=== PATIENT | male | born 1980 | race Caucasian/White ===

== ENCOUNTER 2016-09-27 17:50 | Emergency (ER) | payer SELFPAY ==
--- NOTE | 2016-09-27 19:54 | ED NURSING NOTES ---
Clinical Report - Nurses [facility] [address] [place] [address] 09/27/2016 17:51 [id number] TRI[facility] Triage time 18:11. Acuity: LEVEL 4. Chief Complaint: FALL. 18:11 09/27/16. 18:11 09/27/16. Alert. No acute distress. SEPSIS SCREEN: Sepsis Screen. Negative (no infection suspected/documented). MELIDA COMA SCORE: Melida Coma Scale: 15- eyes open spontaneously (4); best verbal response- oriented x 4 (5); best motor response- obeys commands (6). --18:17 Kushal Huddleston R.N. 18:14 09/27/16. BP: 130/87. HR: 88. RR: 18. O2 saturation: 99% on room air. Temp: 97.9 F (oral). Pain level now: 07/20. --18:17 Kushal Huddleston R.N. Weight: 86.1 kg stated. Height/Length: 70 inches Per Patient. BMI: 27.2. --18:13 Kushal Huddleston R.N. Medications None. --18:14 Kushal Huddleston R.N. Medication/allergy information source: the patient. --18:17 Kushal Huddleston R.N. Allergies None. --18:14 Kushal Huddleston R.N. History Arrived by private vehicle. Historian: patient. Primary physician (NONE). 18:11 09/27/16. Location of injuries: right eye. This occurred today. Occurred at home. ( 1530 Pt slipped on mud striking his right eye brown on his barn). No loss of consciousness. No headache, neck pain or back pain. 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 PAST MEDICAL HX: Tetanus immunization status is not up-to-date. Immunizations not up to date. SOCIAL HX: Never smoker. Occasional alcohol use. History of occasional drug use. No infectious disease exposure. ABUSE ASSESSMENT: No report of abuse. FALL RISK ASSESSMENT: Fall risk assessment completed. No fall risk identified. NUTRITIONAL RISK ASSESSMENT: The nutritional risk assessment revealed no deficiencies. FUNCTIONAL ASSESSMENT: Functional assessment: no impairments noted. LEARNING NEEDS ASSESSMENT: The learning needs assessment revealed no barriers. --18:17 Kushal Huddleston R.N. PROBLEMS: no known problems. ADDITIONAL SURGERIES: no known surgeries. Assessment 18:09/27/16. --18:17 Kushal Huddleston R.N. Interventions 18:09/27/16. 18:09/27/16. ID and allergy band on patient. To treatment room. --18:17 Kushal Huddleston R.N. PHYSICAL ASSESSMENT 18:09/27/16. GENERAL / NEURO / PSYCH: Alert. Oriented X 4. Appears in no acute distress. HEENT: Forehead: deep laceration with controlled bleeding (Above right eye brown). RESPIRATORY: Respirations not labored. CVS: Capillary refill less than 2 seconds. SKIN: Skin is warm and dry. --18:15 Kushal Huddleston R.N. NURSING PROGRESS NOTES 18:09/27/16. Reassurance given. Two patient identifiers checked. Call light placed in reach. Side rails up x 2. Bed placed in lowest position. Brakes of bed on. --18:15 Kushal Huddleston R.N. 18:09/27/16. Patient ready for evaluation- chart flagged and notification provided. --18:15 Kushal Huddleston R.N. 18:34 09/27/2016 TDAP IM 0.5 mL given. (Lot#: [id number], expiration date: 04/17/2018, Claim Processing Specialist: sanofi pasteur). Given in the right deltoid. Allergies verified and confirmed 5 rights. Vaccine information statement provided to the patient. --18:34 Jose Contreras R.N. ( Report received from MELINA Garcia at 1900. Nurse practitioner currently suturing patient.). --19:37 Narayan Irving R.N. DISPOSITION / DISCHARGE The patient left prior to discharge education being provided. The patient was discharged home. He left the Emergency Department ambulatory. ( Patient left before receiving discharge information.). --20:05 Narayan Irving R.N. Departure time: 20:06. ( Patient left before RN could assess the patient's dressings and sutures as applied by the nurse practitioner.). --20:06 Narayan Irving R.N. Locked/Released at 09/27/2016 20:06 by Narayan Irving R.N.
--- NOTE | 2016-09-27 19:54 | ED NURSING NOTES ---
Clinical Report - Nurses [facility] [address] [place] [address] 09/27/2016 17:51 [id number] TRIAGE Triage time 18:11. Acuity: LEVEL 4. Chief Complaint: FALL. 18:11 09/27/16. 18:11 09/27/16. Alert. No acute distress. SEPSIS SCREEN: Sepsis Screen. Negative (no infection suspected/documented). MELIDA COMA SCORE: Melida Coma Scale: 15- eyes open spontaneously (4); best verbal response- oriented x 4 (5); best motor response- obeys commands (6). --18:17 Kushal Huddleston R.N. 18:14 09/27/16. BP: 130/87. HR: 88. RR: 18. O2 saturation: 99% on room air. Temp: 97.9 F (oral). Pain level now: 07/20. --18:17 Kushal Huddleston R.N. Weight: 86.1 kg stated. Height/Length: 70 inches Per Patient. BMI: 27.2. --18:13 Kushal Huddleston R.N. Medications None. --18:14 Kushal Huddleston R.N. Medication/allergy information source: the patient. --18:17 Kushal Huddleston R.N. Allergies None. --18:14 Kushal Huddleston R.N. History Arrived by private vehicle. Historian: patient. Primary physician (NONE). 18:11 09/27/16. Location of injuries: right eye. This occurred today. Occurred at home. ( 1530 Pt slipped on mud striking his right eye brown on his barn). No loss of consciousness. No headache, neck pain or back pain. 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 PAST MEDICAL HX: Tetanus immunization status is not up-to-date. Immunizations not up to date. SOCIAL HX: Never smoker. Occasional alcohol use. History of occasional drug use. No infectious disease exposure. ABUSE ASSESSMENT: No report of abuse. FALL RISK ASSESSMENT: Fall risk assessment completed. No fall risk identified. NUTRITIONAL RISK ASSESSMENT: The nutritional risk assessment revealed no deficiencies. FUNCTIONAL ASSESSMENT: Functional assessment: no impairments noted. LEARNING NEEDS ASSESSMENT: The learning needs assessment revealed no barriers. --18:17 Kushal Huddleston R.N. PROBLEMS: no known problems. ADDITIONAL SURGERIES: no known surgeries. Assessment 18:09/27/16. --18:17 Kushal Huddleston R.N. Interventions 18:09/27/16. 18:09/27/16. ID and allergy band on patient. To treatment room. --18:17 Kushal Huddleston R.N. PHYSICAL ASSESSMENT 18:09/27/16. GENERAL / NEURO / PSYCH: Alert. Oriented X 4. Appears in no acute distress. HEENT: Forehead: deep laceration with controlled bleeding (Above right eye brown). RESPIRATORY: Respirations not labored. CVS: Capillary refill less than 2 seconds. SKIN: Skin is warm and dry. --18:15 Kushal Huddleston R.N. NURSING PROGRESS NOTES 18:09/27/16. Reassurance given. Two patient identifiers checked. Call light placed in reach. Side rails up x 2. Bed placed in lowest position. Brakes of bed on. --18:15 Kushal Huddleston R.N. 18:09/27/16. Patient ready for evaluation- chart flagged and notification provided. --18:15 Kushal Huddleston R.N. 18:34 09/27/2016 TDAP IM 0.5 mL given. (Lot#: [id number], expiration date: 04/17/2018, Environmental Quality Analyst: sanofi pasteur). Given in the right deltoid. Allergies verified and confirmed 5 rights. Vaccine information statement provided to the patient. --18:34 Jose Contreras R.N. ( Report received from MELINA Garcia at 1900. Nurse practitioner currently suturing patient.). --19:37 Narayan Irving R.N. DISPOSITION / DISCHARGE The patient left prior to discharge education being provided. The patient was discharged home. He left the Emergency Department ambulatory. ( Patient left before receiving discharge information.). --20:05 Narayan Irving R.N. Departure time: 20:06. ( Patient left before RN could assess the patient's dressings and sutures as applied by the nurse practitioner.). --20:06 Narayan Irving R.N. Locked/Released at 09/27/2016 20:06 by Narayan Irving R.N.
--- NOTE | 2016-09-27 19:54 | ED ORDER SUMMARY ---
..... Patient: JOSESITO BORRERO OrderSheet [facility] VisitID: [id number] [address] [place] [address] 36y, M Registration Date/Time: 09/27/2016 ORDER SHEET Weight: 86.1 kg (stated) Allergies: None GENERAL ORDERS: Suture Set-up: (18:45 09/27/2016 HBivens A.R.N.P.) (19:19 DDavis R.N.) Dress Wounds (18:45 09/27/2016 HBivens A.R.N.P.) (Ack 19:19 DDavis R.N.) (19:56 DDavis R.N.) MEDICATION ORDERS: Tdap IM 0.5 mL (NOW, per protocol) (18:18 09/27/2016 JBoardley R.N. per protocol) (Ack 18:22 LWhalen R.N.) (18:34 LWhalen R.N.) IV FLUIDS: ORDER SHEET NOTES: [Electronically signed by Narayan Irving R.N. (20:09/27/2016)] [Electronically signed by Alva MondragonNRodgerPRodger (22:09/27/2016)] [Electronically locked/signed by Narayan Irving R.N. (20:09/27/2016)]
--- NOTE | 2016-09-27 19:54 | ED CLINICAL REPORT ---
Clinical Report - Physicians/Mid Levels [facility] [address] [place] [address] 09/27/2016 17:51 Patient: JOSESITO BORRERO Time Seen: 18:24; initial patient contact, initial documentation, patient care assumed. Arrived- By private vehicle. Historian- patient. HISTORY OF PRESENT ILLNESS Chief Complaint: FALL. Location of injuries- face. The injury occurred today. Fell while walking and landed on the ground; slipped (slipped in mud in barn and hit face on wall). Occurred at home. The patient denies pain. The patient sustained a moderate blow to the head. No neck pain, loss of consciousness or seizure. Not dazed. REVIEW OF SYSTEMS No dizziness, loss of vision, chest pain, difficulty breathing or headache. No vomiting. He sustained skin laceration but has no pain on weight bearing. All systems otherwise negative, except as recorded above. PAST HISTORY Negative. Tetanus immunization status is unknown. SOCIAL HISTORY Never smoker. Occasional alcohol use. History of occasional drug use: marijuana. No recent travel. Is a local resident. FAMILY HISTORY No significant family medical history. ADDITIONAL NOTES The nursing notes have been reviewed with agreement regarding the chief complaint, HPI, ROS, PMH and patient medications and allergies. PHYSICAL EXAM Vital Signs: 09/27/2016 18:14 BP: 130/87. HR: 88. RR: 18. O2 saturation: 99%. Temp: 97.9 F. Pain level now: 07/20. Have been reviewed as normal and appear to be correct. Appearance: Alert. Oriented X3. No acute distress. Head: Swelling of head present. Head non-tender. Eyes: Pupils equal, round and reactive to light. EOM intact. Right periorbital area: mild swelling, subcutaneous 3.0 cm horizontal laceration and medium sized ecchymosis of the lateral aspect and supraorbital area of the periorbital area. SEE LACERATION PROCEDURE NOTE #1. No erythema, puncture wound or foreign body. No tenderness, abrasion or deformity. No entrapment of extraocular muscles or gaze palsy. ENT: No dental injury. Pharynx normal. Neck: Painless ROM. Non-tender. CVS: Heart sounds normal. Pulses normal. Respiratory: Breath sounds normal. Chest nontender. Abdomen: No visible injury. Soft and nontender. Back: No tenderness. ROM normal. Skin: Skin intact. Skin warm and dry. Normal skin color. Normal skin turgor. Extremities: Normal inspection. Pelvis stable. Extremities atraumatic. No lower extremity edema. Neuro: Oriented X 3. No motor deficit. No sensory deficit. PROGRESS AND PROCEDURES Laceration Repair: Location: face (R eyebrow). Length: 3 cm. Complexity: simple (local anesthesia used and sutured). Wound depth/shape- subcutaneous and linear and involving fascia. Wound is clean. No contamination, foreign body or contused tissue present. No tissue loss. Distal neuro/vascular/tendon status normal. Tendon not examined. No tendon deficit or laceration or tendon injury. Local anesthesia provided using 1% lidocaine (4 mL). Prepped with Betadine. Wound explored, cleansed, irrigated and examined to the base in bloodless field with normal saline. Wound not debrided. No foreign material removed. Closure of skin: interrupted 6-0 nylon (14 sutures). Post-procedure: he is stable and there are no complications. Bleeding is controlled and neuro-vascular status is intact distal to the wound. Dressing applied. Following the application of antibiotic ointment. (per nurse or tech, see other notes). Tetanus immunization given. Estimated blood loss: 5 mL. Patient and family counseled in person regarding the patient's stable condition and diagnosis. 19:53. Differential Diagnosis: Other possible considerations: fall, head injury, fx, lacs, contusions, abrasions, sprains. Above considerations are based on history and physical exam. Differential diagnosis was discussed with patient. Disposition: Discharged home in good and improved condition (19:54). Condition: good and stable. CLINICAL IMPRESSION Single deep laceration to the right periorbital area.Treatment of laceration not delayed. No infection or foreign body present. Fall on same level by slipping. Single contusion with soft tissue hematoma to the right periorbital area.No skin abrasion. INSTRUCTIONS Apply ice for 20 minutes four times a day for two days until better. Don't apply ice directly to skin. Protect wound and keep wound area clean. Soak in warm soapy water twice daily. Apply bacitracin twice daily. Sutures should be removed in five days. Warnings: HEAD INJURY PRECAUTIONS: An observer must check on the patient frequently for the next 24 hours to confirm that the patient responds as expected, is not confused, has no new weakness or numbness, and has no other problems. GENERAL WARNINGS: Return or contact your physician immediately if your condition worsens or changes unexpectedly, if not improving as expected, or if other problems arise. bleeding increases, changes in vision, or any other concerns. Follow-up: Follow up with your doctor in five days even if well and for suture removal and wound check. Call for an appointment. Summary of care provided to patient. Understanding of the discharge instructions verbalized by patient. (Electronically signed by Alva Mondragon A.R.N.P. 09/27/2016 22:20)
--- NOTE | 2016-09-27 19:54 | ED ORDER SUMMARY ---
..... Patient: JOSESITO BORRERO OrderSheet [facility] VisitID: [id number] [address] [place] [address] 36y, M Registration Date/Time: 09/27/2016 ORDER SHEET Weight: 86.1 kg (stated) Allergies: None GENERAL ORDERS: Suture Set-up: (18:45 09/27/2016 HBivens A.R.N.P.) (19:19 DDavis R.N.) Dress Wounds (18:45 09/27/2016 HBivens A.R.N.P.) (Ack 19:19 DDavis R.N.) (19:56 DDavis R.N.) MEDICATION ORDERS: Tdap IM 0.5 mL (NOW, per protocol) (18:18 09/27/2016 JBoardley R.N. per protocol) (Ack 18:22 LWhalen R.N.) (18:34 LWhalen R.N.) IV FLUIDS: ORDER SHEET NOTES: [Electronically signed by Narayan Irving R.N. (20:09/27/2016)] [Electronically signed by Alva MondragonNRodgerPRodger (22:09/27/2016)] [Electronically locked/signed by Narayan Irving R.N. (20:09/27/2016)]
--- NOTE | 2016-09-27 22:20 | ED MED RECONCILIATION SUMMARY ---
Patient: APOORVACLIFTON WOODARDOL Sindhu Medication Reconciliation Report [facility] VisitID: [id number] [address] [place] [address] 36y, M Registration Date/Time: 09/27/2016 Weight: 86.1 kg Height/Length: 70 in. BMI: 27.2 ALLERGIES: None The patient's Home Medications are listed below: NONE. The source(s) of the original Home Medication information: patient The following Medications were given to the patient in the Emergency Department: TDAP [IM] IM 0.5 mL, administered: 09/27/2016 6:34:00 PM The following Medications were prescribed to the patient: None.
--- NOTE | 2016-09-27 22:20 | ED MAR SUMMARY ---
..... Medication Administration Record [facility] [address] [place] [address] Patient: JOSESITO BORRERO Visit ID: [id number] 36y, M Weight: 86.1 kg Height/Length: 70 in BMI: 27.2 ALLERGIES: None Given 18:34 09/27/2016 Jose Contreras R.N. Medication Administered: TDAP [IM], Dose: 0.5 mL IM. Medication Ordered: Tdap IM 0.5 mL (NOW, per protocol).
--- NOTE | 2016-09-27 22:20 | ED MAR SUMMARY ---
..... Medication Administration Record [facility] [address] [place] [address] Patient: JOSESITO BORRERO Visit ID: [id number] 36y, M Weight: 86.1 kg Height/Length: 70 in BMI: 27.2 ALLERGIES: None Given 18:34 09/27/2016 Jose Contreras R.N. Medication Administered: TDAP [IM], Dose: 0.5 mL IM. Medication Ordered: Tdap IM 0.5 mL (NOW, per protocol).
--- NOTE | 2016-09-27 22:20 | ED DISCHARGE INSTRUCTIONS ---
Patient: JOSESITO BORRERO General Instructions [facility] VisitID: [id number] [place] [address] 36y, M Registration Date/Time: 09/27/2016 Single deep laceration to the right periorbital area.Treatment of laceration not delayed. No infection or foreign body present. Fall on same level by slipping. Single contusion with soft tissue hematoma to the right periorbital area.No skin abrasion. INSTRUCTIONS Apply ice for 20 minutes four times a day for two days until better. Don't apply ice directly to skin. Protect wound and keep wound area clean. Soak in warm soapy water twice daily. Apply bacitracin twice daily. Sutures should be removed in five days. Warnings: HEAD INJURY PRECAUTIONS: An observer must check on the patient frequently for the next 24 hours to confirm that the patient responds as expected, is not confused, has no new weakness or numbness, and has no other problems. GENERAL WARNINGS: Return or contact your physician immediately if your condition worsens or changes unexpectedly, if not improving as expected, or if other problems arise. bleeding increases, changes in vision, or any other concerns. Follow-up: Follow up with your doctor in five days even if well and for suture removal and wound check. Call for an appointment. Summary of care provided to patient. Understanding of the discharge instructions verbalized by patient. ADDITIONAL INFORMATION Mechanical Fall You have had a fall today. It appears that the cause is mechanical. That means that you slipped, tripped or lost your balance. If your fall had been due to fainting or a seizure, further tests would be required. Home Care: Rest today and resume your normal activities when you are feeling back to normal. If you were injured during the fall, follow the advice from your doctor regarding care of your injury. You may use acetaminophen (Tylenol) or ibuprofen (Motrin, Advil) to control pain, unless another pain medicine was prescribed. [NOTE: If you have chronic liver or kidney disease or ever had a stomach ulcer or GI bleeding, talk with your doctor before using these medicines.] Fall Prevention: Was there anything that caused your fall that can be fixed, removed, or replaced? Make your home safe by keeping walkways clear of objects you may trip over. Use non-slip pads under rugs. Do not walk in poorly lit areas. Do not stand on chairs or wobbly ladders. Use caution when reaching overhead or looking upward. This position can cause a loss of balance. Be sure your shoes fit properly, have non-slip bottoms and are in good condition. Be cautious when going up and down curbs, and walking on uneven sidewalks. If your balance is poor, consider using a cane or walker. Stay as active as you can. Balance, flexibility, strength, and endurance all come from exercise. They all play a role in preventing falls. Follow Up with your doctor or as advised by our staff. Get Prompt Medical Attention if any of the following occur: Repeated mechanical falls, or unexplained falls Dizziness, fainting or seizure Severe headache Chest pain or shortness of breath Palpitations (very rapid or very slow or irregular heartbeat) Blood in vomit, stools (black or red color) Weakness of an arm or leg or one side of the face Difficulty with speech or vision Laceration, Face (Suture Or Tape) Alaceration is a cut through the skin. This will require stitches if it is deep. Minor cuts may be treated with surgical tape. Home care The following guidelines will help you care for your laceration at home: If a bandage was applied and it becomes wet or dirty, replace it. Otherwise, leave it in place for the first 24 hours, then change it once a day or as directed. If sutures were used, clean the wound daily: After removing the bandage, wash the area with soap and water. Use a wet cotton swab to loosen and remove any blood or crust that forms. After cleaning, keep the wound clean and dry. Talk with your doctor before applying any antibiotic ointment to the wound. Reapply a fresh bandage. You may remove the bandage to shower as usual after the first 24 hours, but do not soak the area in water (no swimming) until the sutures are removed. If surgical tape was used, keep the area clean and dry. If it becomes wet, blot it dry with a towel. The doctor may prescribe an antibiotic cream or ointment to prevent infection. Do not stop taking this medication until you have have finished the prescribed course or the doctor tells you to stop. The doctor may also prescribe medications for pain. Follow the doctor's instructions for taking these medications.If you have chronic liver or kidney disease or ever had a stomach ulcer or GI bleeding, talk with your doctor before using these medicines. Follow-up care Follow up with your health care provider. Most facial cuts heal in five days with no problem. However, even with proper treatment, a wound infection sometimes occurs. Therefore, check the wound daily for the warning signs listed below. Stitches should not be left in the face for more thanfivedays; otherwise, permanent stitch mitchell may form. If surgical tape closures were used, you may remove them yourself afterfivedays, if they have not fallen off by then. When to seek medical care Get prompt medical attention if any of these occur: Increasing pain in the wound Redness, swelling, or pus coming from the wound If sutures come apart or fall out before 5 days If the surgical tape closures fall off before 5 days, or the wound edges reopen Fever of 100.4F (38C) or higher, or as directed by your health care provider Bleeding not controlled by direct pressure Laceration: Will There Be A Scar? A laceration is a cut through one or more layers of the skin. The goal of emergency treatment is to clean the wound and close it to prevent infection, control bleeding and speed healing. Cuts heal because the body is able to repair the skin by "sealing" the edges together with collagen, a kind of "skin cement." How deep your cut is, its location on your body, your age and the way your skin heals all determine how visible the final scar will be. Some persons tend to heal with more scar tissue than others. This cut will probably heal similar to other cuts you have had in the past. What You Can Do: There are a few simple things that you can do to limit the amount of scar that forms: 1) PREVENT INFECTION: An infected wound makes a bigger scar. Keep the wound clean and dry. Change the dressing and apply any ointment/cream as directed. 2) MASSAGE THE WOUND:After the stitches have been removed: Use a moisturizing cream or lotion containing Aloe or Vitamin E Oil and gently massage the skin around the wound with your fingertips (wash your hands first!). Do this twice a day for the first two weeks, then once a day for a month. This will increase the flow of oxygen and blood to the wound and prevent excess scar tissue from building up. 3) AVOID SUN EXPOSURE: During the first six months, avoid sun exposure since the scar may sanchez a much darker color than the skin around it. When in the sun, use SPF #50 (or greater) sun block on the scar, or cover the area with a hat or clothing. What To Expect: -- The cut will be sealed within 2 days and will be strong within 5-10 days. However, it will take at least SIX MONTHS for it to be fully healed. -- During the FIRST THREE MONTHS, you may notice the scar line getting more red or purple in color. The scar may become raised. The skin around the wound may feel thick and lumpy. -- During the FOURTH TO SIXTH MONTHS, this process begins to reverse. The red and purple color will fade, the scar line flattens, and the skin around it feels more normal. -- In most cases, the way the scar line looks after six months is the way it will remain, although there may be some continued improvement up to one year after the injury. Is There Anything Else That Can Be Done? If you do not like the way the scar looks after six months, a plastic surgeon may be able to perform a "scar revision." If you have any questions or problems as your wound heals, contact your doctor or this facility. We will be glad to assist you. Eye Contusion You have a CONTUSION of your eye. This can cause swelling and bruising of the lids (black eye) and may also cause bleeding in the white part of the eye. The bruising and lid swelling may increase over the first 12 hours. The lid swelling should start to go down after 1-2 days. The lid bruising may take 1-2 weeks to disappear. Home Care: Make an ice pack (ice cubes in a plastic bag, wrapped in a towel) and apply for 20 minutes every 1-2 hours the first day. Continue this 3-4 times a day until the swelling starts to go down. You may use acetaminophen (Tylenol) or ibuprofen (Motrin, Advil) to control pain, unless another pain medicine was prescribed. [NOTE:If you have chronic liver or kidney disease or ever had a stomach ulcer or GI bleeding, talk with your doctor before using these medicines.] Follow Up with your doctor or this facility if you are not improving within the next THREE days. [NOTE: If X-rays were taken, they will be reviewed by a radiologist. You will be notified of any new findings that may affect your care.] Get Prompt Medical Attention if any of the following occur: Increasing eye pain Unable to open eyelid after 2 days, due to swelling Any sudden changes in your vision Light flashes Floaters (small dots or strings that seem to be moving across your field of vision) Eye pain, redness, or discharge from your eyelid Blurriness that lasts more than 24 hours Dark spots in your field of vision Halos around lights Dimness of vision Partial or complete loss of vision Head Injury, No Wake-Up (Adult) You have had a head injury. It does not appear serious at this time. Symptoms of a more serious problem (concussion, bruising, or bleeding in the brain) may appear later. Therefore, watch for the WARNING SIGNS listed below. Home Care: Your healthcare provider will tell you whether its okay to drive. If so, you can drive yourself home. For the next day or so, be careful when driving or using heavy machinery until you are sure you have no delayed symptoms. During the next 24 hours someone must stay with you to check for the signs below. It is not necessary to stay awake or be awakened during the night. If you have swelling of the face or scalp, apply an ice pack (ice cubes in a plastic bag, wrapped in a towel) for 20 minutes. Do this every 1-2 hours until the swelling starts to go down. Do not use aspirin or ibuprofen (Motrin, Advil) after a head injury.You may use acetaminophen (Tylenol)to control pain, unless another pain medicine was prescribed. [NOTE: If you have chronic liver or kidney disease or ever had a stomach ulcer or GI bleeding, talk with your doctor before using these medicines.] For the next 24 hours: Do not take alcohol, sedatives or medicines that make you sleepy. Avoid strenuous activities. No lifting or straining. If you have had any symptoms of a concussion today (nausea, vomiting, dizziness, confusion, headache, memory loss or if you were knocked out), do not return to sports or any activity that could result in another head injury until all symptoms are gone and you have been cleared by your doctor. A second head injury before fully recovering from the first one can lead to serious brain injury. Follow Up with your doctor if symptoms are not improving after 24 hours, or as directed. [NOTE: A radiologist will review any X-rays or CT scans that were taken. We will notify you of any new findings that may affect your care.] Get Prompt Medical Attention if any of the followingWARNING SIGNS occur: Repeated vomiting Severe or worsening headache or dizziness Unusual drowsiness, or unable to awaken as usual Confusion or change in behavior or speech, memory loss, blurred vision Convulsion (seizure) Increasing scalp or face swelling Redness, warmth or pus from the swollen area Fluid drainage or bleeding from the nose or ears You have been given the following additional information: Fall, Mechanical Laceration, Face (Suture Or Tape) Laceration, How To Minimize Scar Contusion, Eye HEAD INJURY, No Wake-Up (Adult) (Electronically signed by Alva Mondragon A.R.N.P. 09/27/2016 22:20)
--- NOTE | 2016-09-27 22:20 | ED MED RECONCILIATION SUMMARY ---
Patient: APOORVACLIFTON WOODARDOL Sindhu Medication Reconciliation Report [facility] VisitID: [id number] [place] [address] 36y, M Registration Date/Time: 09/27/2016 Weight: 86.1 kg Height/Length: 70 in. BMI: 27.2 ALLERGIES: None The patient's Home Medications are listed below: NONE. The source(s) of the original Home Medication information: patient The following Medications were given to the patient in the Emergency Department: TDAP [IM] IM 0.5 mL, administered: 09/27/2016 6:34:00 PM The following Medications were prescribed to the patient: None.
== END 2016-09-27 20:01 | disposition home or self-care (01) ==
LOC: ED SRH 17:50
DX: S01.81XA Laceration without foreign body of other part of head, initial encounter (principal); W01.198A Fall on same level from slipping, tripping and stumbling with subsequent striking against other object, initial encounter; Y93.9 Activity, unspecified; Y92.009 Unspecified place in unspecified non-institutional (private) residence as the place of occurrence of the external cause; Y99.9 Unspecified external cause status